=== PATIENT | female | born 1960 | race Caucasian/White ===

== ENCOUNTER → 2018-04-10 13:06 | Outpatient (CLI) | payer OTHER, SELFPAY ==
[2018-04-12 16:00] LABS: Cancer Antigen 27.29 45 U/mL (< 38)
== END ==
PROVIDERS: Family Provider Physician Assistant; PCP Physician Assistant; Visit Provider Nurse Practitioner Gerontology
DX: D05.12 Intraductal carcinoma in situ of left breast (principal)
CPT/HCPCS: 36415; 86300

== ENCOUNTER → 2018-05-11 10:09 | Outpatient (CLI) | payer OTHER, SELFPAY ==
[2018-05-11 10:50] LABS: Alanine Aminotransferase 49 IU/L (9-52); Albumin 4.5 g/dL (3.5-5.0); Albumin Globulin Ratio 1.3 (1.0-2.8); Alkaline Phosphatase 63 U/L (38-126); Aspartate Aminotransferase 38 IU/L (14-36); BUN Creatinine Ratio 28.3 (6-22); Bilirubin Total 0.4 mg/dL (0.2-1.3); Blood Urea Nitrogen 17 mg/dL (7-17); Calcium 9.6 mg/dL (8.4-10.2); Carbon Dioxide 28 mmol/L (22-32); Chloride 103 mmol/L (98-107); Cholesterol 201 mg/dL (140-199); Estimated Glomerular Filt Rate > 60.0 mL/min (>60); Globulin 3.6 g/dL (1.7-4.1); Glucose 111 mg/dL (70-100); HDL Cholesterol 34 mg/dL (40-60); HEMOLYSIS < 15 (0-50); LDL Cholesterol Calculated 139 mg/dL (<100); Potassium 3.9 mmol/L (3.4-5.1); Sodium 143 mmol/L (137-145); Total Protein 8.1 g/dL (6.3-8.2); Triglycerides 141 mg/dL (35-150)
== END ==
PROVIDERS: Family Provider Physician Assistant; PCP Physician Assistant; Visit Provider Physician Assistant
DX: E78.5 Hyperlipidemia, unspecified (principal)
CPT/HCPCS: 36415; 80053; 80061

== ENCOUNTER → 2018-07-17 13:31 | Outpatient (CLI) | payer OTHER, SELFPAY ==
[2018-07-17 13:49] LABS: Add Manual Diff / Slide Review NO; Basophils Percent Auto 0.8 % (0-2); Hematocrit 39.8 % (36-46); Hemoglobin 13.4 g/dL (12.0-16.0); Lymphocytes Percent Auto 34.4 % (25-40); Mean Corpuscular HGB Conc 33.6 % (30-36); Mean Corpuscular Hemoglobin 31.3 PG (26-34); Mean Corpuscular Volume 93.1 fL (80-100); Neutrophils Absolute Auto 3600 /uL (3000-5900); Neutrophils Percent Auto 47.8 % (50-75); Platelet Count 273 X10^3/uL (150-400); Red Blood Cell Count 4.27 X10^6/uL (4.0-5.2); Red Cell Distribution Width 12.5 % (11.6-14.8); White Blood Cell Count 7.4 X10^3/uL (4.5-11.0)
[2018-07-17 13:55] LABS: Alanine Aminotransferase 48 IU/L (9-52); Albumin 4.3 g/dL (3.5-5.0); Albumin Globulin Ratio 1.4 (1.0-2.8); Alkaline Phosphatase 60 U/L (38-126); Aspartate Aminotransferase 37 IU/L (14-36); BUN Creatinine Ratio 26.7 (6-22); Bilirubin Total 0.5 mg/dL (0.2-1.3); Blood Urea Nitrogen 16 mg/dL (7-17); Calcium 9.6 mg/dL (8.4-10.2); Carbon Dioxide 32 mmol/L (22-32); Chloride 101 mmol/L (98-107); Estimated Glomerular Filt Rate > 60.0 mL/min (>60); Glucose 109 mg/dL (70-100); HEMOLYSIS < 15 (0-50); Sodium 140 mmol/L (137-145); Total Protein 7.3 g/dL (6.3-8.2)
== END ==
PROVIDERS: Family Provider Physician Assistant; PCP Physician Assistant; Visit Provider Nurse Practitioner Gerontology
DX: D05.12 Intraductal carcinoma in situ of left breast (principal)
CPT/HCPCS: 36415; 80053; 85025

== ENCOUNTER → 2018-07-19 12:23 | Outpatient (CLI) | payer OTHER, SELFPAY ==
--- NOTE | 2018-07-19 | DI.MG.S_ITS ---
BILATERAL DIGITAL SCREENING MAMMOGRAM 3D/2D WITH CAD POST LUMPECTOMY: 07/19/2018 CLINICAL: Routine screening. Personal history of left breast cancer. Family history of breast cancer. Comparison is made to exams dated: 08/24/2017 localization, 08/24/2017 specimen, 07/27/2017 breast MRI - [facility], 07/12/2017 specimen, 07/12/2017 stereotactic biopsy, and 07/05/2017 mammogram - [facility]. The tissue of both breasts is extremely dense, which lowers the sensitivity of mammography. Current study was also evaluated with a Computer Aided Detection (CAD) system. There is a possible 1.5 cm oval mass in the right breast lower inner aspect anterior depth. There is a 0.5 cm oval mass with an indistinct margin in the left breast lower inner aspect middle depth. There is a biopsy clip associated with the mass. There also are new calcifications in the lower outer left breast from anterior to middle depth. No other significant masses or calcifications are seen in either breast. IMPRESSION: INCOMPLETE: NEEDS ADDITIONAL IMAGING EVALUATION 1) The 0.5 cm oval mass in the left breast lower inner aspect middle depth is indeterminate. Associated biopsy clip is from prior stereotactic biopsy that was positive for carcinoma on stereotactic biopsy of 07/12/2017. Additional views with possible ultrasound are recommended. 2) The new calcifications in the lower outer left breast are indeterminate. Additional views with possible ultrasound are recommended. 3) The possible 1.5 cm oval mass in the right breast lower inner aspect anterior depth is indeterminate. Additional views with possible ultrasound are recommended. This exam was interpreted at Station ID: [id number]. NOTE: For mammograms, a report in lay terms will be sent to the patient. Approximately 15% of breast malignancies will not be visualized mammographically. In the management of a palpable breast mass, a negative mammogram must not discourage biopsy of a clinically suspicious lesion. Electronically Signed By: Tyler Godinez M.D. ecl/:07/21/2018 20:57:07 letter sent: Additional Imaging Needed ACR BI-RADS Category 0: Incomplete 3340F
== END ==
PROVIDERS: Family Provider Nurse Practitioner Gerontology; PCP Physician Assistant; Visit Provider Physician Assistant
DX: Z12.31 Encounter for screening mammogram for malignant neoplasm of breast (principal); Z85.3 Personal history of malignant neoplasm of breast; Z80.3 Family history of malignant neoplasm of breast
CPT/HCPCS: 77063; 77067

== ENCOUNTER → 2018-08-09 13:39 | Outpatient (CLI) | payer OTHER, SELFPAY ==
--- NOTE | 2018-08-09 | DI.MG.S_ITS ---
BILATERAL DIGITAL DIAGNOSTIC MAMMOGRAM 3D/2D WITH ADDITIONAL VIEWS: 08/09/2018 CLINICAL: Additional evaluation requested from prior study. Comparison is made to exams dated: 07/19/2018 mammogram, 07/27/2017 breast MRI - [facility], 06/27/2017 mammogram - [facility], and 08/24/2017 [facility]. The tissue of both breasts is heterogeneously dense. This may lower the sensitivity of mammography. 0.5 cm oval circumscribed mass in the left breast lower inner aspect middle depth with associated coil shaped biopsy clip persists with additional views. Lower outer left breast calcifications appear benign. There is postsurgical scarring of the left breast central to the nipple at middle to anterior depth resulting in overlying skin retraction. Previously noted possible 1.5 cm oval mass in the right breast lower inner aspect anterior depth resolves with additional views. No other significant masses, calcifications, or other findings are seen in either breast. IMPRESSION: INCOMPLETE: NEEDS ADDITIONAL IMAGING EVALUATION 1) 0.5 cm oval circumscribed mass in the left breast lower inner aspect middle depth with associated coil shaped biopsy clip persists with additional views. Targeted ultrasound recommended. 2) Postsurgical scarring of the left breast central to the nipple at middle to anterior depth resulting in overlying skin retraction. Targeted ultrasound recommended. This exam was interpreted at Station ID: [id number]. NOTE: For mammograms, a report in lay terms will be sent to the patient. Approximately 15% of breast malignancies will not be visualized mammographically. In the management of a palpable breast mass, a negative mammogram must not discourage biopsy of a clinically suspicious lesion. Electronically Signed By: Tyler Godinez M.D. ecl/:08/10/2018 09:37:04 letter sent: Additional Imaging Needed ACR BI-RADS Category 0: Incomplete 3340F
--- NOTE | 2018-08-09 13:40 | DI.US.S_ITS ---
ULTRASOUND OF LEFT BREAST: 08/09/2018 CLINICAL: Follow up from addtional views. Comparison is made to exams dated: 08/09/2018 mammogram, 07/19/2018 mammogram, 07/27/2017 breast MRI [facility], and 06/27/2017 mammogram - [facility]. Real-time and Doppler ultrasound of the left breast were performed. Cummings scale images of the real-time examination were reviewed. There is a 0.7 x 0.5 cm hypoechoic mass or fluid collection surrounding the echogenic biopsy clip in the left breast at 7:00 position 6 cm from the nipple. This may be a fluid reaction generated by the biopsy clip itself. This area is immediately adjacent to a hypoehoic tract extending to the overlying skin surface, which may represent the previous biopsy tract or postsurgical change. Scarring is seen in the left retroareolar region central to the nipple. Targeted ultrasound of the left axilla demonstrates no lymphadenopathy. IMPRESSION: PROBABLY BENIGN - FOLLOW-UP RECOMMENDED 1) Residual biopsy clip in the left breast at 7:00 position 6 cm from the nipple with surrounding hypoechoic region that may represent a fluid reaction/colelction surrounding the clip, less likely a true mass. A follow-up mammogram and an ultrasound in 6 months is recommended to demonstrate stability. Clinical follow-up recommended for correlation of these findings with the patient's postsurgical/oncology treatment plan. 2) Postsurgical scarring of the left breast. This can be reevaluated on the follow-up mammogram and ultrasound recommended above. 3) No left axillary lymphadenopathy. These results and recommendations were discussed with the patient's referring provider [facility] [place] at approximately 9:00 am on 08/10/[address] Godinez. This exam was interpreted at Station ID: [id number]. Electronically Signed By: Tyler Godinez M.D. ecl/:08/10/2018 10:05:56 letter sent: Followup Recommended Ultrasound BI-RADS: 3 Probably benign
== END ==
PROVIDERS: Family Provider Nurse Practitioner Gerontology; PCP Physician Assistant; Visit Provider Physician Assistant
DX: R92.8 Other abnormal and inconclusive findings on diagnostic imaging of breast (principal); N63.24 Unspecified lump in the left breast, lower inner quadrant; L90.5 Scar conditions and fibrosis of skin
CPT/HCPCS: 76642; 77066; G0279

== ENCOUNTER → 2019-02-05 16:45 | Outpatient (CLI) | payer OTHER, SELFPAY | PROVIDERS: Family Provider Physician Assistant; PCP Physician Assistant; Visit Provider Internal Medicine Hematology & Oncology | DX: D05.12 Intraductal carcinoma in situ of left breast (principal) | CPT/HCPCS: 36415; 80053; 85025 ==

== ENCOUNTER → 2019-05-11 12:39 | Outpatient (CLI) | payer OTHER, SELFPAY ==
[2019-05-11 13:32] LABS: Cholesterol 256 mg/dL (140-199); HDL Cholesterol 34 mg/dL (40-60); LDL Cholesterol Calculated 149 mg/dL (<100); Triglycerides 365 mg/dL (35-150)
== END ==
PROVIDERS: Family Provider Physician Assistant; PCP Physician Assistant; Visit Provider Physician Assistant
DX: E78.5 Hyperlipidemia, unspecified (principal)
CPT/HCPCS: 36415; 80053; 80061; 82378; 85025; 86300

== ENCOUNTER → 2019-07-23 15:23 | Outpatient (CLI) | payer OTHER, SELFPAY ==
--- NOTE | 2019-07-23 15:25 | DI.MG.S_ITS ---
BILATERAL DIGITAL SCREENING MAMMOGRAM 3D/2D WITH CAD POST LUMPECTOMY: 07/23/2019 CLINICAL: Routine screening. Personal history of left breast cancer. Family history of breast cancer. Comparison is made to exams dated: 08/09/2018 mammogram, 07/19/2018 mammogram - [facility], 09/18/2018 breast MRI - [facility], 06/27/2017 mammogram, and 06/23/2016 mammogram - [facility]. The tissue of both breasts is heterogeneously dense. This may lower the sensitivity of mammography. Current study was also evaluated with a Computer Aided Detection (CAD) system. There are new grouped fine calcifications in the right breast middle depth superior region seen on the mediolateral oblique view only. No other significant masses, calcifications, or other findings are seen in either breast. IMPRESSION: INCOMPLETE: NEEDS ADDITIONAL IMAGING EVALUATION The new grouped fine calcifications in the right breast are indeterminate. Additional views are recommended. This exam was interpreted at Station ID: [id number]. NOTE: For mammograms, a report in lay terms will be sent to the patient. Approximately 15% of breast malignancies will not be visualized mammographically. In the management of a palpable breast mass, a negative mammogram must not discourage biopsy of a clinically suspicious lesion. Electronically Signed By: Chantell healy/rj:07/23/2019 19:32:17 letter sent: Additional Imaging Needed ACR BI-RADS Category 0: Incomplete 3340F
== END ==
PROVIDERS: Family Provider Physician Assistant; PCP Physician Assistant; Visit Provider Internal Medicine Hematology & Oncology
DX: D05.12 Intraductal carcinoma in situ of left breast (principal); Z80.3 Family history of malignant neoplasm of breast
CPT/HCPCS: 77063; 77067

== ENCOUNTER → 2019-08-24 09:37 | Outpatient (CLI) | payer OTHER, SELFPAY ==
--- NOTE | 2019-08-24 10:06 | DI.MG.S_ITS ---
UNILATERAL RIGHT DIGITAL DIAGNOSTIC MAMMOGRAM 3D/2D WITH ADDITIONAL VIEWS: 08/24/2019 CLINICAL: Additional evaluation requested from prior study. Comparison is made to exams dated: 07/23/2019 mammogram, 08/09/2018 mammogram, and 07/19/2018 mammogram - [facility]. The tissue of right breast is heterogeneously dense. This may lower the sensitivity of mammography. There are new grouped fine calcifications in the right breast middle depth superior region seen on the mediolateral oblique view only. These are not seen in additional views. No other significant masses or calcifications are seen in the breast. IMPRESSION: The questionable grouped fine calcifications in the right breast seen only on the screening mammogram dated 07/23/19 do not persist on additional views. This findong most likely represents psuedocalcification artifact and is benign. There is no mammographic evidence of malignancy. A 1 year screening mammogram is recommended. This exam was interpreted at Station ID: [id number]. NOTE: For mammograms, a report in lay terms will be sent to the patient. Approximately 15% of breast malignancies will not be visualized mammographically. In the management of a palpable breast mass, a negative mammogram must not discourage biopsy of a clinically suspicious lesion. Electronically Signed By: Shanda Kurtz M.D. lk/:08/24/2019 10:25:06 letter sent: Normal Exam ACR BI-RADS Category 2: Benign Finding(s) 3342F
== END ==
PROVIDERS: Family Provider Physician Assistant; PCP Physician Assistant; Visit Provider Internal Medicine Hematology & Oncology
DX: R92.8 Other abnormal and inconclusive findings on diagnostic imaging of breast (principal); D05.12 Intraductal carcinoma in situ of left breast
CPT/HCPCS: 77065; G0279

== ENCOUNTER → 2019-09-04 09:40 | Outpatient (CLI) | payer OTHER, SELFPAY ==
--- NOTE | 2019-09-04 09:42 | DI.NM.S_ITS ---
PROCEDURE: MO BONE SCAN WHOLE BODY RADIOPHARMACEUTICAL: 19.8 mCi Tc-99m MDP IV. INDICATIONS: breast cancer follow up, rising Ca27-29 TECHNIQUE: Delayed whole-body scintigrams were obtained approximately 3-4 hours after intravenous injection of radiotracer. Anterior and posterior views were acquired from vertex to feet. COMPARISON: [place], [place], BONE SCAN WHOLE BODY, 08/05/2017, 11:26. FINDINGS: No lesions are identified in skull, sternum, clavicles, scapulae, ribs, bony pelvis, and visualized shafts of the long bones. There is low level increased uptake in cervical, thoracic and lumbar spine with distribution indistinguishable from degenerative disc and facet disease; early metastasis to spine could be obscured by degenerative changes. There are foci of increased periarticular activity involving shoulders, sternoclavicular joints, right greater than left, wrists, hands, hips, SI joints, knees, and feet, compatible with degenerative/arthritic changes. IMPRESSION: 1. Stable bone scan. No definitive scintigraphic findings to suggest osseous metastatic disease. Dictated by: Maurice Diana M.D. on 09/04/2019 at 15:38 Approved by: Maurice Diana M.D. on 09/04/2019 at 18:01
== END ==
PROVIDERS: Family Provider Physician Assistant; PCP Physician Assistant; Visit Provider Internal Medicine Hematology & Oncology
DX: D05.12 Intraductal carcinoma in situ of left breast (principal)
CPT/HCPCS: 78306; A9503

== ENCOUNTER → 2019-09-17 16:40 | Outpatient (CLI) | payer OTHER, SELFPAY ==
[2019-09-17 18:04] LABS: Add Manual Diff / Slide Review NO; Basophils Absolute Auto 0 /uL (0-100); Basophils Percent Auto 0.5 % (0-2); Eosinophils Absolute Auto 500 /uL (0-450); Eosinophils Percent Auto 5.6 % (2-4); Hematocrit 41.5 % (36-46); Hemoglobin 13.8 g/dL (12.0-16.0); Lymphocytes Absolute Auto 3200 /uL (1100-4500); Lymphocytes Percent Auto 35.9 % (25-40); Mean Corpuscular HGB Conc 33.2 % (30-36); Mean Corpuscular Hemoglobin 31.5 PG (26-34); Monocytes Absolute Auto 900 /uL (0-900); Monocytes Percent Auto 10.1 % (3-14); Neutrophils Absolute Auto 4300 /uL (1500-7000); Neutrophils Percent Auto 47.9 % (50-75); Platelet Count 278 X10^3/uL (150-400); Red Blood Cell Count 4.36 X10^6/uL (4.0-5.2); Red Cell Distribution Width 12.3 % (11.6-14.8); White Blood Cell Count 8.9 X10^3/uL (4.5-11.0)
[2019-09-17 18:30] LABS: Alanine Aminotransferase 37 IU/L (9-52); Albumin 4.5 g/dL (3.5-5.0); Albumin Globulin Ratio 1.5 (1.0-2.8); Alkaline Phosphatase 52 U/L (38-126); Aspartate Aminotransferase 34 IU/L (14-36); BUN Creatinine Ratio 27.1 (6-22); Bilirubin Total 0.3 mg/dL (0.2-1.3); Blood Urea Nitrogen 19 mg/dL (7-17); Calcium 9.9 mg/dL (8.4-10.2); Carbon Dioxide 30 mmol/L (22-32); Chloride 103 mmol/L (98-107); Estimated Glomerular Filt Rate > 60.0 mL/min (>60); Globulin 3.1 g/dL (1.7-4.1); Glucose 113 mg/dL (70-100); HEMOLYSIS < 15 (0-50); Potassium 5.1 mmol/L (3.4-5.1); Sodium 141 mmol/L (137-145); Total Protein 7.6 g/dL (6.3-8.2)
[2019-09-20 15:04] LABS: Cancer Antigen 27.29 77 U/mL (< 38)
== END ==
PROVIDERS: Family Provider Physician Assistant; PCP Physician Assistant; Visit Provider Internal Medicine Hematology & Oncology
DX: D05.12 Intraductal carcinoma in situ of left breast (principal)
CPT/HCPCS: 36415; 80053; 85025; 86300

== ENCOUNTER → 2019-09-19 13:29 | Outpatient (CLI) | payer OTHER, SELFPAY ==
--- NOTE | 2019-09-19 13:30 | DI.CT.S_ITS ---
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 5 mm coronal and sagittal reformats were performed, with additional 7 mm coronal MIP reformats through the lungs. For radiation dose reduction, the following was used: automated exposure control, adjustment of mA and/or kV according to patient size. COMPARISON: [facility], CT, CHEST/ABD/PEL WITH CONTRAST, 08/03/2017, 10:52. FINDINGS: Image quality: Excellent. CHEST: Lungs and pleura: No acute airspace opacities. Biapical scarring is seen. Scattered scarring/atelectasis in periphery of bilateral lower lung menjivar are seen. No pleural effusions or pneumothorax. Central and peripheral airways appear patent and normal in caliber. Mediastinum: Heart size is normal. No pericardial effusion. No mediastinal or hilar adenopathy by size criteria. Thoracic aorta and central pulmonary arteries are normal in size. Esophagus is normal in caliber. There is a small hiatal hernia. Chest wall: No axillary or supraclavicular adenopathy by size criteria. Thyroid gland is within normal limits. Surgical clips are noted within left breast. ABDOMEN: Solid organs: Liver is normal in size and enhancement. There is hepatic steatosis. Tiny hypodensity involving right hepatic dome is seen and is too small to characterize series 2 image 59. Tiny calcified granuloma in the anterior aspect of right hepatic dome is also seen. 4 mm hypodensity is also seen in left hepatic dome series 2 image 58. 6 mm hypodensity is noted involving medial segment of left hepatic lobe series 2 image 69, and is too small to characterize. Gallbladder is within normal limits. Biliary system is non dilated. Pancreas enhances normally. Spleen is normal in size and enhancement. No adrenal nodules. Kidneys demonstrate normal size and enhancement, without hydronephrosis. Peritoneum and bowel: Bowel loops demonstrate normal wall thickness and caliber. No free fluid or air. Appendix is visualized and is within normal limits. Sigmoid diverticulosis is seen, no CT evidence of acute diverticulitis. Nodes and vessels: No retroperitoneal or mesenteric adenopathy by size criteria. Aorta and inferior vena cava are normal in size. Miscellaneous: No ventral hernias. PELVIS: Genitourinary: Bladder wall thickness is normal. No gross abnormality is seen the uterus and bilateral adnexa Miscellaneous: No inguinal hernia. 9 x 18 mm right inguinal lymph node is seen series 2 image 128. No gross left inguinal lymphadenopathy by size criteria. Bones: No suspicious bony lesions. No vertebral body compression fractures. IMPRESSION: 1. No discrete pulmonary nodule or mass. Airway is patent. No mediastinal or hilar lymphadenopathy. No axillary lymphadenopathy. 2. Nonspecific mildly prominent right inguinal lymph node measures 9 x 18 mm in size. No abnormal lymphadenopathy. 3. At least 3 tiny hypodensities seen in right and left hepatic lobes as described above and measures up to 6 mm in size, and are too small to characterize. These were not definitely seen on previous study in 2017. Hepatic steatosis. 4. Sigmoid diverticulosis, no CT evidence of acute diverticulitis. No free fluid or free air. Dictated by: Dmitriy Aguilar M.D. on 09/19/2019 at 14:40 Approved by: Dmitriy Aguilar M.D. on 09/19/2019 at 14:54
== END ==
PROVIDERS: Family Provider Physician Assistant; PCP Physician Assistant; Visit Provider Internal Medicine Hematology & Oncology
DX: D05.12 Intraductal carcinoma in situ of left breast (principal); R97.8 Other abnormal tumor markers; K76.0 Fatty (change of) liver, not elsewhere classified; K57.30 Diverticulosis of large intestine without perforation or abscess without bleeding
CPT/HCPCS: 71260; 74177

== ENCOUNTER → 2020-01-01 12:39 | Outpatient (CLI) | payer OTHER, SELFPAY ==
[2020-01-01 12:54] LABS: Add Manual Diff / Slide Review NO; Basophils Absolute Auto 0 /uL (0-100); Basophils Percent Auto 0.5 % (0-2); Eosinophils Absolute Auto 300 /uL (0-450); Eosinophils Percent Auto 3.5 % (2-4); Hematocrit 37.7 % (36-46); Hemoglobin 12.9 g/dL (12.0-16.0); Lymphocytes Absolute Auto 2400 /uL (1100-4500); Lymphocytes Percent Auto 31.1 % (25-40); Mean Corpuscular HGB Conc 34.2 % (30-36); Mean Corpuscular Hemoglobin 32.2 PG (26-34); Mean Corpuscular Volume 94.4 fL (80-100); Monocytes Absolute Auto 700 /uL (0-900); Monocytes Percent Auto 8.9 % (3-14); Neutrophils Absolute Auto 4300 /uL (1500-7000); Platelet Count 293 X10^3/uL (150-400); Red Cell Distribution Width 12.9 % (11.6-14.8); White Blood Cell Count 7.6 X10^3/uL (4.5-11.0)
[2020-01-01 13:06] LABS: Alanine Aminotransferase 31 IU/L (<35); Albumin 4.4 g/dL (3.5-5.0); Albumin Globulin Ratio 1.4 (1.0-2.8); Alkaline Phosphatase 42 U/L (38-126); Aspartate Aminotransferase 30 IU/L (14-36); Bilirubin Total 0.3 mg/dL (0.2-1.3); Blood Urea Nitrogen 14 mg/dL (7-17); Calcium 9.1 mg/dL (8.4-10.2); Carbon Dioxide 28 mmol/L (22-32); Chloride 104 mmol/L (98-107); Estimated Glomerular Filt Rate > 60.0 mL/min (>60); Globulin 3.2 g/dL (1.7-4.1); Glucose 106 mg/dL (70-100); HEMOLYSIS < 15 (0-50); Sodium 140 mmol/L (137-145); Total Protein 7.6 g/dL (6.3-8.2)
--- NOTE | 2020-01-01 13:54 | DI.CT.S_ITS ---
PROCEDURE: CT CHEST ABD PEL W CON INDICATIONS: breast DCIS, TECHNIQUE: After the administration of oral and intravenous contrast, 5 mm thick sections acquired from the lung apices to the symphysis. 5 mm coronal and sagittal reformats were performed, with additional 7 mm coronal MIP reformats through the lungs. For radiation dose reduction, the following was used: automated exposure control, adjustment of mA and/or kV according to patient size. COMPARISON: [facility], CT, CT CHEST ABD PEL W CON, 09/19/2019, 14:21. FINDINGS: Image quality: Excellent. CHEST: Lungs and pleura: No acute airspace opacities. No pleural effusions or pneumothorax. Central and peripheral airways appear patent and normal in caliber. Mediastinum: Heart size is normal. No pericardial effusion. No mediastinal or hilar adenopathy by size criteria. Thoracic aorta and central pulmonary arteries are normal in size. Esophagus is normal in caliber. No hiatal hernia. Chest wall: No axillary or supraclavicular adenopathy by size criteria. Thyroid gland demonstrates low-attenuation focus in the right lobe, unchanged. Bilateral breast clips are again noted. ABDOMEN: Solid organs: Liver is enlarged with steatosis. Gallbladder is unremarkable. Biliary system is non dilated. Pancreas enhances normally. Spleen is normal in size and enhancement. No adrenal nodules. Kidneys demonstrate normal size and enhancement, without hydronephrosis. Peritoneum and bowel: The previously identified subcentimeter hypodensities predominantly within the hepatic dome and medial left hepatic lobe are unchanged and too small to definitively characterize. Punctate calcification is also noted in the right hepatic dome, unchanged and likely related to granuloma. Nodes and vessels: No retroperitoneal or mesenteric adenopathy by size criteria. Aorta and inferior vena cava are normal in size. Miscellaneous: Fat-containing ventral hernia is present. PELVIS: Genitourinary: Bladder wall thickness is normal. Miscellaneous: Previously identified mildly prominent right inguinal lymph node is unchanged.. Bones: No suspicious bony lesions. No vertebral body compression fractures. IMPRESSION: 1. Stable interval exam. 2. Unchanged punctate hepatic hypo-densities, too small to definitively characterize. Dictated by: Nubia Jang M.D. on 01/01/2020 at 14:31 Approved by: Nubia Jang M.D. on 01/01/2020 at 14:49
[2020-01-03 14:55] LABS: Cancer Antigen 27.29 28 U/mL (< 38)
== END ==
PROVIDERS: Family Provider Physician Assistant; PCP Physician Assistant; Referring Provider Internal Medicine Hematology & Oncology; Visit Provider Internal Medicine Hematology & Oncology
DX: D05.12 Intraductal carcinoma in situ of left breast (principal); K76.0 Fatty (change of) liver, not elsewhere classified; R59.0 Localized enlarged lymph nodes; K43.9 Ventral hernia without obstruction or gangrene
CPT/HCPCS: 36415; 71260; 74177; 80053; 85025; 86300; Q9967

== ENCOUNTER → 2020-01-07 12:57 | Outpatient (CLI) | payer OTHER, SELFPAY ==
[2020-01-07 13:58] LABS: Cholesterol 201 mg/dL (140-199); HDL Cholesterol 34 mg/dL (40-60); LDL Cholesterol Calculated 114 mg/dL (<100); Triglycerides 263 mg/dL (35-150)
== END ==
PROVIDERS: Family Provider Physician Assistant; PCP Physician Assistant; Referring Provider Physician Assistant; Visit Provider Physician Assistant
DX: E78.2 Mixed hyperlipidemia (principal)
CPT/HCPCS: 36415; 80061

== ENCOUNTER → 2020-07-08 14:05 | Outpatient (CLI) | payer OTHER, SELFPAY ==
--- NOTE | 2020-07-08 14:07 | DI.CT.S_ITS ---
PROCEDURE: CT CHEST ABD PEL W CON INDICATIONS: breast cancer, abnormal liver function, abnormal tumor marke TECHNIQUE: After the administration of oral and intravenous contrast, 5 mm thick sections acquired from the lung apices to the symphysis. 5 mm coronal and sagittal reformats were performed, with additional 7 mm coronal MIP reformats through the lungs. For radiation dose reduction, the following was used: automated exposure control, adjustment of mA and/or kV according to patient size. COMPARISON: [facility], CT, CT CHEST ABD PEL W CON, 01/01/2020, 13:53. FINDINGS: Image quality: Excellent. CHEST: Lungs and pleura: No acute airspace opacities. Bibasilar dependent change. No pleural effusions or pneumothorax. Central and peripheral airways appear patent and normal in caliber. Mediastinum: Heart size is normal. No pericardial effusion. No mediastinal or hilar adenopathy by size criteria. Thoracic aorta and central pulmonary arteries are normal in size. Esophagus is normal in caliber. No hiatal hernia. Chest wall: No axillary or supraclavicular adenopathy by size criteria. Thyroid gland contains a sub cm nodule in the right lobe. This is unchanged. Remote left breast lumpectomy. ABDOMEN: Solid organs: Liver is normal in size and enhancement. Tiny stable liver hypodensities, likely representing cysts versus hemangiomata. No suspicious liver lesions. Gallbladder is contracted, unremarkable. . Biliary system is non dilated. Pancreas enhances normally. Spleen is normal in size and enhancement. No adrenal nodules. Kidneys demonstrate normal size and enhancement, without hydronephrosis. Peritoneum and bowel: Bowel loops demonstrate normal wall thickness and caliber. No free fluid or air. Sigmoid diverticulosis without evidence of diverticulitis. Nodes and vessels: No retroperitoneal or mesenteric adenopathy by size criteria. Aorta and inferior vena cava are normal in size. Miscellaneous: No ventral hernias. PELVIS: Genitourinary: Bladder wall thickness is normal. Miscellaneous: No inguinal hernias or adenopathy. Bones: No suspicious bony lesions. No vertebral body compression fractures. IMPRESSION: No evidence of metastatic disease in the chest, abdomen, and pelvis. Dictated by: Renato Pickens M.D. on 07/08/2020 at 16:18 Approved by: Renato Pickens M.D. on 07/08/2020 at 16:27
== END ==
PROVIDERS: Family Provider Physician Assistant; PCP Physician Assistant; Referring Provider Internal Medicine Hematology & Oncology; Visit Provider Internal Medicine Hematology & Oncology
DX: D05.12 Intraductal carcinoma in situ of left breast (principal); R74.0 Nonspecific elevation of levels of transaminase and lactic acid dehydrogenase [LDH]; K57.30 Diverticulosis of large intestine without perforation or abscess without bleeding
CPT/HCPCS: 71260; 74177; Q9967

== ENCOUNTER → 2020-07-26 12:43 | Outpatient (CLI) | payer OTHER, SELFPAY ==
--- NOTE | 2020-07-26 12:52 | DI.MG.S_ITS ---
Patient Name: SCAR KWON date: 1960 Sex: F Attending Physician: Tae Indications: Date: 07/26/2020 12:49 At the request of: ANKIT NEFF Procedure: MM screening mammo BI BILATERAL DIGITAL SCREENING MAMMOGRAM 3D/2D WITH CAD: 07/26/2020 CLINICAL: Routine screening. Personal history of left breast cancer. Family history of breast cancer. Comparison is made to exams dated: 08/24/2019 mammogram, 07/23/2019 mammogram - [facility], and 12/07/2018 specimen - [facility]. The tissue of both breasts is heterogeneously dense. This may lower the sensitivity of mammography. Current study was also evaluated with a Computer Aided Detection (CAD) system. There are benign calcifications in both breasts. There also are benign post operative findings in the left breast. No significant masses, calcifications, or other findings are seen in either breast. There has been no significant interval change. IMPRESSION: BENIGN There is no mammographic evidence of malignancy. A 1 year screening mammogram is recommended. This exam was interpreted at Station ID: [id number]. NOTE: For mammograms, a report in lay terms will be sent to the patient. Approximately 15% of breast malignancies will not be visualized mammographically. In the management of a palpable breast mass, a negative mammogram must not discourage biopsy of a clinically suspicious lesion. Electronically Signed By: Chantell healy/rj:07/28/2020 08:48:53 letter sent: Normal Exam ACR BI-RADS Category 2: Benign Finding(s) 3342F
== END ==
PROVIDERS: Family Provider Physician Assistant; PCP Physician Assistant; Referring Provider Internal Medicine Hematology & Oncology; Visit Provider Internal Medicine Hematology & Oncology
DX: Z12.31 Encounter for screening mammogram for malignant neoplasm of breast (principal); D05.12 Intraductal carcinoma in situ of left breast; Z80.3 Family history of malignant neoplasm of breast
CPT/HCPCS: 77063; 77067

== ENCOUNTER → 2021-07-27 10:40 | Outpatient (CLI) | payer OTHER, SELFPAY | PROVIDERS: Family Provider Physician Assistant; PCP Physician Assistant; Referring Provider Internal Medicine Hematology & Oncology; Visit Provider Internal Medicine Hematology & Oncology | DX: Z12.31 Encounter for screening mammogram for malignant neoplasm of breast (principal) ==

== ENCOUNTER → 2021-09-01 10:15 | Outpatient (ROUT) | payer OTHER, SELFPAY ==
[2021-09-01 11:48] LABS: COVID19 -Nasal RAPID Negative (Negative)
== END ==
PROVIDERS: Family Provider Physician Assistant; PCP Physician Assistant; Visit Provider Physician Assistant
DX: Z20.822 Contact with and (suspected) exposure to COVID-19 (principal)
CPT/HCPCS: 87635

== ENCOUNTER → 2022-08-10 11:27 | Outpatient (CLI) | payer OTHER, SELFPAY ==
--- NOTE | 2022-08-10 11:29 | DI.MG.S_ITS ---
BILATERAL DIGITAL SCREENING MAMMOGRAM 3D/2D WITH CAD: 08/10/2022 CLINICAL: Routine screening. Family history of breast cancer. Breast cancer. Comparison is made to exams dated: 07/27/2021 mammogram, 07/26/2020 mammogram, 08/24/2019 mammogram, and 07/23/2019 mammogram - [facility]. Both breasts are heterogeneously dense, which may obscure small masses (category c / 51-75% glandular tissue). Current study was also evaluated with a Computer Aided Detection (CAD) system. There are benign calcifications in both breasts. There also are benign post operative findings in the left breast. No significant masses, calcifications, or other findings are seen in either breast. There has been no significant interval change. IMPRESSION: BENIGN There is no mammographic evidence of malignancy. A 1 year screening mammogram is recommended. This exam was interpreted at Station ID: [id number]. NOTE: For mammograms, a report in lay terms will be sent to the patient. Approximately 15% of breast malignancies will not be visualized mammographically. In the management of a palpable breast mass, a negative mammogram must not discourage biopsy of a clinically suspicious lesion. Electronically Signed By: Brenton bourgeois/rj:08/10/2022 12:55:53 copy to: ANKIT NEFF letter sent: Normal Exam ACR BI-RADS Category 2: Benign Finding(s) 3342F
== END ==
PROVIDERS: Family Provider Physician Assistant; PCP Physician Assistant; Visit Provider Physician Assistant
DX: Z12.31 Encounter for screening mammogram for malignant neoplasm of breast (principal)
CPT/HCPCS: 77063; 77067

== ENCOUNTER → 2022-08-13 09:03 | Outpatient (ROUT) | payer OTHER, SELFPAY ==
[2022-08-13 10:16] LABS: COVID-19 CEPHEID PCR (VTM/NP) Negative (Negative)
== END ==
PROVIDERS: Family Provider Physician Assistant; PCP Physician Assistant; Visit Provider Internal Medicine
DX: Z20.89 Contact with and (suspected) exposure to other communicable diseases (principal)
CPT/HCPCS: U0003; U0005

== ENCOUNTER → 2022-09-07 17:28 | Outpatient (CLI) | payer OTHER, SELFPAY ==
[2022-09-07 18:03] LABS: BUN Creatinine Ratio 30.6 (6-22); Blood Urea Nitrogen 22 mg/dL (7-17); Estimated Glomerular Filt Rate > 60 mL/min (>60)
== END ==
PROVIDERS: Family Provider Physician Assistant; PCP Physician Assistant; Referring Provider Internal Medicine Hematology & Oncology; Visit Provider Internal Medicine Hematology & Oncology
DX: Z98.890 Other specified postprocedural states (principal)
CPT/HCPCS: 36415; 82565; 84520

== ENCOUNTER → 2022-09-08 09:59 | Outpatient (CLI) | payer OTHER, SELFPAY ==
--- NOTE | 2022-09-08 09:59 | DI.CT.S_ITS ---
PROCEDURE: CT CHEST ABD PEL W CON INDICATIONS: Rising CA 27-29, transamintis, H/o DCIS, F/o breast cancer TECHNIQUE: After the administration of oral and intravenous contrast, axial sections acquired from the supraclavicular neck to the pubic symphysis. Coronal and sagittal reformats were performed. For radiation dose reduction, the following was used: automated exposure control, adjustment of mA and/or kV according to patient size. COMPARISON:[facility], CT, CT CHEST ABD PEL W CON, 07/08/2020, 15:00. FINDINGS: Image quality: Excellent Lungs and pleura: Mosaic attenuation and basal scar/atelectasis. These findings were probably present previously, allowing for differences in respiratory phase. No pleural effusions or pneumothorax. No new or enlarging nodule. Slightly more prominent nodular area in the lingula (3/220), might be an area of atelectasis. Mediastinum, heart, and esophagus: No hiatal hernia. Stable mildly enlarged right hilar lymph node. Heart size is normal. No thoracic aortic aneurysm. Chest wall and thyroid: Left lumpectomy. No axillary or supraclavicular adenopathy. No internal mammary adenopathy. This is by size criteria. stable thyroid nodules. Solid organs: Suspected hepatic steatosis, more obvious than prior. Subcentimeter lesions are too small to characterize. Gallbladder is under distended. No biliary ductal dilation. Pancreas is within normal limits. No splenomegaly. No adrenal nodules. No hydronephrosis. Vessels and lymph nodes: No lymphadenopathy by size criteria. No abdominal aortic aneurysm. Bowel and peritoneum: No bowel obstruction. No pathologic ascites. There are colonic diverticula. Body wall: Fat containing supraumbilical midline hernia. Pelvis: Bladder is under distended. Unremarkable appearance of the uterus. Similar appearance of the adnexal structures. Bones: Small sclerotic lesions are generally stable. These might be bone islands. Scattered degenerative changes. Impression: No definite new or enlarging disease compared to 2019. The only significant change is interval development of hepatic steatosis which limits evaluation for focal lesions. Suspected chronic lung changes as described above. If there is continued clinical concern for recurrence given elevation of tumor markers, consider follow-up imaging with CT chest and MRI of the abdomen and pelvis. Dictated by: Juan R Ibarra M.D. on 09/08/2022 at 16:04 Approved by: Juan R Ibarra M.D. on 09/08/2022 at 16:16
== END ==
PROVIDERS: Family Provider Physician Assistant; PCP Physician Assistant; Referring Provider Internal Medicine Hematology & Oncology; Visit Provider Internal Medicine Hematology & Oncology
DX: D05.12 Intraductal carcinoma in situ of left breast (principal); R74.01 Elevation of levels of liver transaminase levels; K76.0 Fatty (change of) liver, not elsewhere classified; R97.8 Other abnormal tumor markers; K57.90 Diverticulosis of intestine, part unspecified, without perforation or abscess without bleeding; K42.9 Umbilical hernia without obstruction or gangrene
CPT/HCPCS: 71260; 74177; Q9967

== ENCOUNTER → 2022-11-11 07:45 | Outpatient (CLI) | payer OTHER, SELFPAY ==
--- NOTE | 2022-11-11 07:46 | DI.MRI.S_ITS ---
PROCEDURE: MR ABDOME PELVIS WWO CON INDICATIONS: Elevation of levels of liver transaminase levels TECHNIQUE: Coronal HASTE, axial 2D FLASH in- and [id number]; axial breath-hold T2 FSE; dynamic axial VIBE during IV gadolinium administration; postgadolinium coronal VIBE or 2D FLASH with fat saturation from the hepatic dome to the iliac crests. COMPARISON: [facility], CT, CT CHEST ABD PEL W CON, 09/08/2022, 11:40. FINDINGS: Image quality: Excellent. Lung bases: No basal pleural effusions. Normal size heart. Tiny hiatal hernia. Solid organs: The liver is enlarged measuring 22.1 cm in length. Moderately prominent diffuse signal loss on T1 out of phase imaging with band like areas of relative fatty sparing adjacent to the falciform ligament and in the pericaval area. Liver margin is smooth. No arterial phase hyperenhancing lesions. Occasional subcentimeter rounded T2 hyperintense cysts or hamartomas. The gallbladder is decompressed and there is a tiny dependent T1 hyperintense stone dependently in the body. No intra or extrahepatic biliary dilatation. No choledocholithiasis. There is pancreas divisum morphology. The pancreas has otherwise normal contour and enhancement. Normal adrenal glands, kidneys, and spleen. Nodes and vessels: No retroperitoneal or mesenteric adenopathy. Vasculature is patent and of normal caliber. Bowel and peritoneum: Stomach and small bowel loops are within normal limits. Normal appendix is present. There is moderate descending and sigmoid colon diverticulosis without significant mural enhancement or thickening to suggest acute diverticulitis. Pelvis: Normal size uterus containing a few small myometrial hypointense, nonenhancing fibroids, the largest measuring about 1.2 cm. The endometrium appears normal. The cervix contains nabothian cysts, normal. The right ovary was not seen. The left ovary appears normal. The urinary bladder is normal without wall thickening. No pelvic adenopathy or suspicious adnexal mass. Bones and soft tissues: Normal marrow signal. No suspicious enhancement. Normal soft tissues. IMPRESSION: 1. Hepatomegaly and moderate hepatic steatosis. 2. Cholelithiasis. 3. Descending and sigmoid colon diverticulosis. 4. Minimally fibroid uterus. Dictated by: Chantell Wagner M.D. on 11/11/2022 at 10:19 Approved by: Chantell Wagner M.D. on 11/11/2022 at 10:36
== END ==
PROVIDERS: Family Provider Physician Assistant; PCP Physician Assistant; Referring Provider Internal Medicine Hematology & Oncology; Visit Provider Internal Medicine Hematology & Oncology
DX: D05.12 Intraductal carcinoma in situ of left breast (principal); R74.01 Elevation of levels of liver transaminase levels; R97.8 Other abnormal tumor markers; K76.0 Fatty (change of) liver, not elsewhere classified; K57.30 Diverticulosis of large intestine without perforation or abscess without bleeding
CPT/HCPCS: 72197; 74183

== ENCOUNTER → 2022-11-15 11:14 | Outpatient (CLI) | payer OTHER, SELFPAY ==
--- NOTE | 2022-11-15 11:15 | DI.CT.S_ITS ---
PROCEDURE: CT CHEST W CON INDICATIONS: 62-year-old female with breast cancer and rising tumor markers TECHNIQUE: After the administration of intravenous contrast, 5 mm thick sections acquired from the pulmonary apices to the posterior costophrenic angles. 1 mm axial lung, 5 mm thick coronal and sagittal reformats and 7 mm axial MIP were acquired. For radiation dose reduction, the following was used: automated exposure control, adjustment of mA and/or kV according to patient size. COMPARISON: [facility], CT, CT CHEST ABD PEL W CON, 09/08/2022, 11:40. FINDINGS: Image quality: Excellent. Lungs and pleura: No acute air space opacities. No pleural effusions or pneumothorax. Central and peripheral airways are patent and normal in caliber. Peripheral chronic interstitial changes noted peripherally, similar prior Mediastinum: Heart size is normal. No pericardial effusion. No mediastinal or hilar adenopathy by size criteria. Thoracic aorta and central pulmonary arteries are normal in size. Esophagus is normal in caliber. No hiatal hernia. Bones and chest wall: No suspicious bony lesions. No vertebral body compression fractures. No axillary or supraclavicular adenopathy by size criteria. Thyroid gland unremarkable. Left lumpectomy noted . Abdomen: Visualized upper abdominal solid organs appear normal. Upper abdominal bowel loops are normal in caliber. Advanced hepatic fatty infiltration IMPRESSION: Stable CT of the chest without new nodule or adenopathy. Chronic interstitial pulmonary changes stable. Hepatic fatty infiltration, partially imaged Approved by: Zeke Hawthorne M.D. on 11/15/2022 at 12:44
== END ==
PROVIDERS: Family Provider Physician Assistant; PCP Physician Assistant; Referring Provider Internal Medicine Hematology & Oncology; Visit Provider Internal Medicine Hematology & Oncology
DX: D05.12 Intraductal carcinoma in situ of left breast (principal); R74.01 Elevation of levels of liver transaminase levels; R97.8 Other abnormal tumor markers; K76.0 Fatty (change of) liver, not elsewhere classified
CPT/HCPCS: 71260; Q9967

== ENCOUNTER → 2023-03-18 09:35 | Outpatient (CLI) | payer OTHER, SELFPAY ==
--- NOTE | 2023-03-18 09:37 | DI.CT.S_ITS ---
PROCEDURE: CT CHEST ABD PEL W CON INDICATIONS: rising CA 27,29 TECHNIQUE: After the administration of oral and intravenous contrast, axial sections acquired from the supraclavicular neck to the pubic symphysis. Coronal and sagittal reformats were performed. For radiation dose reduction, the following was used: automated exposure control, adjustment of mA and/or kV according to patient size. COMPARISON: [facility], MR, MR ABDOMEN PELVIS WWO CON, 11/11/2022, 8:07. [facility], CT, CT CHEST W CON, 11/15/2022, 11:24. [facility], CT, CT CHEST ABD PEL W CON, 09/08/2022, 11:40. FINDINGS: Image quality: Excellent. CHEST: Lower Neck: No enlarged lymph nodes. Thyroid: Small right thyroid nodule measuring 0.7 cm. Axillae: No enlarged lymph nodes. Chest Wall: Left breast clips. Lungs and Airways: Mild patchy ground-glass opacity bilaterally is unchanged. No consolidative opacity. The airways are clear. Mild bronchiectasis. No significant pulmonary nodules. Pleura: No pneumothorax or pleural effusions. Heart: Heart size is normal. No pericardial effusion. Thoracic Vessels: The aorta and pulmonary arteries demonstrate normal size. No central pulmonary embolism. Mediastinum and Ruthie: No enlarged lymph nodes. Esophagus: No wall thickening. Probable small hiatal hernia. ABDOMEN: Liver: No focal lesion. Small calcified granuloma. Prominent size. Gallbladder: Unremarkable. Biliary ducts: Unremarkable. Pancreas: Unremarkable. Spleen: Unremarkable. Adrenal Glands: No nodule. Kidneys and Ureters: No hydronephrosis. Stomach and Bowel: Stomach, small bowel loops, and colon are unremarkable. Diverticulosis. Normal appendix. Peritoneum: No abnormal intraperitoneal fluid. No free air. Ventral Wall: No significant hernia. Abdominal Nodes: No retroperitoneal or mesenteric adenopathy by size criteria. Vessels: Aorta and inferior vena cava are normal in size. Mild calcified plaque. PELVIS: Pelvic Organs: Anteverted uterus. Bladder: Mostly decompressed. Pelvic Nodes: No enlarged lymph nodes. Miscellaneous: No inguinal hernias are seen. Bones: No suspicious lesion. No compression fracture. IMPRESSION: 1. No mass or adenopathy demonstrated. No free fluid. 2. Mild patchy ground-glass opacity in the lungs is unchanged. This could be due to infectious/inflammatory etiology or interstitial lung disease. Dictated by: Doug Faith M.D. on 03/18/2023 at 11:53 Approved by: Doug Faith M.D. on 03/18/2023 at 12:09
--- NOTE | 2023-03-18 09:37 | DI.NM.S_ITS ---
PROCEDURE: [place] BONE SCAN WHOLE BODY RADIOPHARMACEUTICAL: 21.2 mCi Tc-99m MDP IV. INDICATIONS: rising CA 27,29 TECHNIQUE: Delayed whole-body scintigrams were obtained approximately 3-4 hours after intravenous injection of radiotracer. Anterior and posterior views were acquired from vertex to feet. COMPARISON: [place], [place], BONE SCAN WHOLE BODY, 08/05/2017, 11:26. [place], [place], [place] BONE SCAN WHOLE BODY, 09/04/2019, 13:37. [facility], MR, MR ABDOMEN PELVIS WWO CON, 11/11/2022, 8:07. [facility], CT, CT CHEST ABD PEL W CON, 03/18/2023, 10:32. FINDINGS: There is increased activity in the area left of the T11 and T12, new since the last bone scan, suspicious for metastasis. No lesions are identified in skull, sternum, clavicles, scapulae, ribs, bony pelvis, and visualized shafts of the long bones. There are foci of increased uptake in cervical spine, with distribution suggesting facet disease. There are foci of increased periarticular activity most pronounced in shoulders, right sternoclavicular joint, knees and feet, compatible with degenerative/arthritic changes. IMPRESSION: 1. New increased activity in the area of left side of T11 and T12, suspicious for metastasis. Recommend MRI with and without contrast for correlation if clinically indicated. Dictated by: Maurice Diana M.D. on 03/18/2023 at 15:01 Approved by: Maurice Diana M.D. on 03/20/2023 at 10:43
== END ==
PROVIDERS: Family Provider Physician Assistant; PCP Physician Assistant; Referring Provider Internal Medicine Hematology & Oncology; Visit Provider Internal Medicine Hematology & Oncology
DX: D05.12 Intraductal carcinoma in situ of left breast (principal); R97.8 Other abnormal tumor markers; M89.9 Disorder of bone, unspecified
CPT/HCPCS: 71260; 74177; 78306; A9503; Q9967

== ENCOUNTER → 2023-04-01 12:37 | Outpatient (CLI) | payer OTHER, SELFPAY ==
--- NOTE | 2023-04-01 | DI.MRI.S_ITS ---
PROCEDURE: MR THORACIC SPINE WO/W CON INDICATIONS: Intraductal carcinoma in situ of left breast TECHNIQUE: Noncontrast sagittal T1 spin echo and T2 fast spin echo, sagittal STIR, axial T1 and T2 fast spin echo through the thoracic spine. After the administration of contrast, axial and sagittal T1 spin echo with fat saturation through the thoracic spine. COMPARISON: [facility], [place], [place] BONE SCAN WHOLE BODY, 03/18/2023, 10:03. [facility], CT, CT CHEST ABD PEL W CON, 03/18/2023, 10:32. FINDINGS: Image quality: Excellent. Alignment and curvature: There is normal bony alignment. Marrow: In this patient, scrutiny is given to the area of bone scan abnormality along the left aspect T11 and T12. There is slightly increased STIR signal seen involving the left pedicles of T11 and T12, which is best seen on series 6, image 11. A minimal degree of increased enhancement can be seen involving the left pedicle, as on series 11, image 11 and on series 13, image 17. Spinal cord: Visualized spinal cord is of normal signal and size, without abnormal enhancement. Paraspinous soft tissues: No paravertebral masses or abnormal enhancement. Miscellaneous: Central canal and foramina appear widely patent at all scanned levels. IMPRESSION: Faintly seen increased STIR signal and enhancement seen involving the left pedicles of T11 and T12, which correlates with the bone scan appearance and is compatible with mild metastatic disease. Dictated by: Harish Fernandez M.D. on 04/01/2023 at 13:16 Approved by: Harish Fernandez M.D. on 04/01/2023 at 13:21
== END ==
PROVIDERS: Family Provider Physician Assistant; PCP Physician Assistant; Referring Provider Internal Medicine Hematology & Oncology; Visit Provider Internal Medicine Hematology & Oncology
DX: D05.12 Intraductal carcinoma in situ of left breast (principal); R94.8 Abnormal results of function studies of other organs and systems
CPT/HCPCS: 72157

== ENCOUNTER → 2023-04-13 07:07 | Outpatient (CLI) | payer OTHER, SELFPAY | PROVIDERS: Family Provider Physician Assistant; PCP Physician Assistant; Referring Provider Internal Medicine Hematology & Oncology; Visit Provider Internal Medicine Hematology & Oncology | DX: D05.12 Intraductal carcinoma in situ of left breast (principal); C79.51 Secondary malignant neoplasm of bone ==

== ENCOUNTER → 2023-06-30 10:13 | Outpatient (CLI) | payer OTHER, SELFPAY | PROVIDERS: Family Provider Physician Assistant; PCP Physician Assistant; Referring Provider Internal Medicine Medical Oncology; Visit Provider Internal Medicine Medical Oncology | DX: C50.919 Malignant neoplasm of unspecified site of unspecified female breast (principal); C79.51 Secondary malignant neoplasm of bone | CPT/HCPCS: 36415 ==

== ENCOUNTER → 2023-10-01 08:16 | Outpatient (CLI) | payer OTHER, SELFPAY ==
[2023-10-01 10:11] LABS: Cholesterol 193 mg/dL (140-199); Creatine Kinase 89 U/L (30-135); HDL Cholesterol 33 mg/dL (40-60); LDL Cholesterol Calculated 98 mg/dL (<100); Triglycerides 311 mg/dL (35-150)
[2023-10-01 10:52] LABS: Creatinine Urine Random 74.4 mg/dL
[2023-10-01 10:54] LABS: Microalbumi Creatinin Ratio Ur 18.8 ug/mg CR (<30); Microalbumin Urine Random 1.4 mg/dL (0-1.6)
[2023-10-01 11:01] LABS: Thyroid Stimulating Hormone 2.16 uIU/mL (0.47-4.68)
[2023-10-03 06:36] LABS: Apolipoprotein B 125 mg/dL (<90)
[2023-10-04 06:00] LABS: Lipoprotein (a) 9.1 nmol/L (<75.0)
== END ==
PROVIDERS: Family Provider Physician Assistant; PCP Physician Assistant; Referring Provider Internal Medicine; Visit Provider Internal Medicine
DX: E78.00 Pure hypercholesterolemia, unspecified (principal)
CPT/HCPCS: 36415; 80061; 82043; 82172; 82550; 82570; 83695; 84443

== ENCOUNTER → 2024-06-23 08:20 | Outpatient (CLI) | payer OTHER, SELFPAY ==
[2024-06-23 10:18] LABS: Hemoglobin A1C% w Est Avg Glu 5.9 % (4.0-6.0)
[2024-06-23 10:19] LABS: Cholesterol 191 mg/dL (140-199); HDL Cholesterol 41 mg/dL (40-60); LDL Cholesterol Calculated 108 mg/dL (<100); Triglycerides 210 mg/dL (35-150)
== END ==
PROVIDERS: Family Provider Physician Assistant; PCP Physician Assistant; Referring Provider Internal Medicine; Visit Provider Internal Medicine
DX: E78.00 Pure hypercholesterolemia, unspecified (principal); E11.9 Type 2 diabetes mellitus without complications
CPT/HCPCS: 36415; 80061; 83036

== ENCOUNTER → 2024-12-28 08:49 | Outpatient (CLI) | payer BC, SELFPAY ==
[2024-12-28 09:50] LABS: Add Manual Diff / Slide Review NO; Basophils Absolute Auto 100 /uL (0-100); Basophils Percent Auto 0.7 % (0-2); Eosinophils Absolute Auto 400 /uL (0-450); Hematocrit 44.2 % (36-46); Hemoglobin 14.6 g/dL (12.0-16.0); Lymphocytes Absolute Auto 3200 /uL (1100-4500); Lymphocytes Percent Auto 44.2 % (25-40); Mean Corpuscular Volume 94.1 fL (80-100); Monocytes Absolute Auto 1000 /uL (0-900); Monocytes Percent Auto 13.5 % (3-14); Neutrophils Absolute Auto 2600 /uL (1500-7000); Neutrophils Percent Auto 35.6 % (50-75); Platelet Count 354 X10^3/uL (150-400); Red Cell Distribution Width 12.8 % (11.6-14.8); White Blood Cell Count 7.2 X10^3/uL (4.5-11.0)
[2024-12-28 10:00] LABS: Cholesterol 298 mg/dL (140-199); HDL Cholesterol 35 mg/dL (40-60); LDL Cholesterol Calculated 185 mg/dL (<100); Triglycerides 390 mg/dL (35-150)
[2024-12-28 10:07] LABS: Creatinine Urine Random 100.94 mg/dL
[2024-12-28 10:15] LABS: Microalbumin Urine Random 1.5 mg/dL (0-1.6)
[2024-12-28 10:30] LABS: Thyroid Stimulating Hormone 1.88 uIU/mL (0.47-4.68)
== END ==
PROVIDERS: Family Provider Physician Assistant; PCP Physician Assistant; Referring Provider Internal Medicine; Visit Provider Internal Medicine
DX: E11.9 Type 2 diabetes mellitus without complications (principal)
CPT/HCPCS: 36415; 80061; 82043; 82570; 83036; 84443; 85025

== ENCOUNTER → 2025-06-27 08:14 | Outpatient (CLI) | payer BC, SELFPAY ==
[2025-06-27 08:45] LABS: Hemoglobin A1C% w Est Avg Glu 6.8 % (4.0-6.0)
[2025-06-27 09:00] LABS: Alanine Aminotransferase 64 IU/L (<35); Albumin 4.3 g/dL (3.5-5.0); Albumin Globulin Ratio 1.4 (1.0-2.8); Alkaline Phosphatase 47 U/L (38-126); Blood Urea Nitrogen 21 mg/dL (7-17); Calcium 9.2 mg/dL (8.4-10.2); Carbon Dioxide 26 mmol/L (22-32); Chloride 107 mmol/L (98-107); Cholesterol 183 mg/dL (140-199); Estimated Glomerular Filt Rate > 60 mL/min (>60); Globulin 3.1 g/dL (1.7-4.1); Glucose 135 mg/dL (70-99); HDL Cholesterol 32 mg/dL (40-60); HEMOLYSIS 16 (0-50); Potassium 4.7 mmol/L (3.4-5.1); Sodium 139 mmol/L (137-145); Total Protein 7.4 g/dL (6.3-8.2); Triglycerides 319 mg/dL (35-150)
== END ==
PROVIDERS: Family Provider Physician Assistant; PCP Physician Assistant; Referring Provider Internal Medicine; Visit Provider Internal Medicine
DX: E11.9 Type 2 diabetes mellitus without complications (principal)
CPT/HCPCS: 36415; 80053; 80061; 83036